=== PATIENT | male | born 1965 | race Caucasian/White ===

== ENCOUNTER → 2021-06-26 | Outpatient (CLI) | payer OTHER ==
[~2021-06-26] MED LIST: HYDACE5325 PO; OXYACE5T PO; RXOXYACE PO; Silvadene20 GM TP
[2021-06-26 18:44] LABS: BASOPHILS ABSOLUTE AUTO 0.05 K/mm3 (0.00-0.23); BASOPHILS PERCENT AUTO 0 % (0-2); EOSINOPHILS ABSOLUTE AUTO 0.14 K/mm3 (0.00-0.68); EOSINOPHILS PERCENT AUTO 1 % (0-6); Hematocrit 42.2 % (37.0-53.0); Hemoglobin 15.3 g/dL (13.5-17.5); IMMATURE GRAN ABSOLUTE AUTO 0.03 K/mm3 (0.00-0.10); IMMATURE GRAN PERCENT AUTO 0 % (0-1); LYMPHOCYTES ABSOLUTE AUTO 1.99 K/mm3 (0.84-5.20); LYMPHOCYTES PERCENT AUTO 17 % (21-46); MONOCYTES ABSOLUTE AUTO 0.64 K/mm3 (0.16-1.47); MONOCYTES PERCENT AUTO 6 % (4-13); Mean Corpuscular HGB 31.7 pg (26.0-34.0); Mean Corpuscular HGB Conc 36.3 g/dL (31.5-36.5); Mean Corpuscular Volume 88 fL (80-100); Mean Platelet Volume 10.1 fL (9.1-12.4); NEUTROPHILS ABSOLUTE AUTO 8.88 K/mm3 (1.96-9.15); NEUTROPHILS PERCENT AUTO 76 % (41-73); Platelet Count 226 K/mm3 (150-400); RDW Coefficient Variation 11.8 % (11.7-14.2); RDW Standard Deviation 37.8 fL (35.1-46.3); Red Blood Cell Count 4.82 M/mm3 (4.30-5.90); White Blood Cell Count 11.73 K/mm3 (4.00-11.30)
== END | disposition home or self-care (01) ==
LOC: LAB SHORT 18:39
PROVIDERS: Physician Assistant Surgical
DX: M25.572 Pain in left ankle and joints of left foot (principal)
CPT/HCPCS: 84550; 85025

== ENCOUNTER 2021-08-02 23:45 | Emergency (ER) | payer BC, OTHER ==
[~2021-08-02] VITALS: Ht 170.2 cm; Wt 77.1 kg
[2021-08-03] MEDS ORDERED: ERYT.5TO BOTHEYES (01:16)
== END 2021-08-03 01:25 | disposition home or self-care (01) ==
LOC: ER 23:45
DX: T15.02XA Foreign body in cornea, left eye, initial encounter (principal)
CPT/HCPCS: A9270

== ENCOUNTER 2024-11-01 00:33 | Emergency (ER) | payer BC ==
[~2024-11-01] VITALS: Ht 170.2 cm; Wt 70.3 kg
[~2024-11-01 00:33] MED LIST changes: +ERYT.5TO BOTHEYES
[2024-11-01 01:16] VITALS: BP 114/86
[2024-11-01] MEDS ORDERED: CEPH500 PO (03:02)
== END 2024-11-01 03:20 | disposition home or self-care (01) ==
LOC: ER 00:33
DX: S61.432A Puncture wound without foreign body of left hand, initial encounter (principal); Z59.89 Other problems related to housing and economic circumstances; Z79.2 Long term (current) use of antibiotics; Z79.899 Other long term (current) drug therapy; W31.89XA Contact with other specified machinery, initial encounter
CPT/HCPCS: 90471; 90715; 99283-25; A9270